=== PATIENT | male | born 1960 | race Caucasian/White ===

== ENCOUNTER → 2019-12-07 | Outpatient (CLI) | payer BC ==
--- NOTE | 2019-12-07 09:36 | Diagnostic Imaging Report ---
PROCEDURE: US Gallbladder. TECHNIQUE: Multiple real-time grayscale images were obtained over the right upper quadrant in various projections. INDICATION: Lower back pain Liver parenchyma is homogeneous with normal echotexture. Portal vein is patent with hepatopedal flow. Gallbladder is clear with no stones or wall thickening. The common duct is not dilated. Pancreas aorta and IVC are obscured by bowel gas. Right kidney measures 10.9 cm in length and appears normal. There is no ascites. IMPRESSION: Negative gallbladder sonogram Dictated by: Dictated on workstation # [id number]
== END ==
LOC: RAD 08:36
PROVIDERS: ATTEND Surgery
DX: M54.5 Low back pain (principal)
CPT/HCPCS: 76705

== ENCOUNTER → 2019-12-18 | Outpatient (CLI) | payer BC ==
[~2019-12-18] MED LIST: CATHETER FLUSH 10 ML SYR IV PRN
--- NOTE | 2019-12-18 14:38 | Diagnostic Imaging Report ---
RADIOPHARMACEUTICAL: 5.41 mCi Tc-99m Choletec IV INDICATION: Lower back pain, abdominal pain. COMPARISON: Ultrasound dated December 07, 2019. TECHNIQUE: Anterior dynamic imaging for 45 minutes. Subsequently, patient drank an 8 ounce can of Ensure and additional imaging was performed for 60 minutes. FINDINGS: There is homogenous uptake throughout the liver. The gallbladder is visualized at 10 minutes and small bowel at 40 minutes. After the patient ingested an 8 ounce can of Ensure, the gallbladder ejection fraction was calculated to be 33%, which is borderline low. IMPRESSION: 1. No evidence of acute cholecystitis or common duct obstruction. 2. The gallbladder ejection fraction is calculated to be 33%. This is borderline low as it is the lower limits of normal. Dictated by: Dictated on workstation # [id number]
== END ==
LOC: EDUNIT# 12-03 15:53 → CARD 11:17
PROVIDERS: ATTEND Surgery
DX: M54.5 Low back pain (principal)
CPT/HCPCS: 78227

== ENCOUNTER 2020-02-24 08:48 | Day surgery (SDC) | payer BC ==
[2020-02-24] VITALS (11 sets, daily range): BP systolic 106–158; BP diastolic 62–85
[~2020-02-24] VITALS: Ht 187.9 cm; Wt 107.0 kg
[2020-02-24] MEDS ORDERED: HEParin (CATH LAB) 2,000 ML IV ONE (08:56)
[2020-02-24] MEDS ORDERED: LIDOCAINE 1% INJ 20 ML 20 ML VIAL ONE (08:56)
[2020-02-24] MEDS ORDERED: NS IV 1000 ML 1,000 ML ONE (08:56)
[2020-02-24] MEDS ORDERED: NS IV 1000 ML 1,000 ML IV SCH ×2 (09:15→13:17)
--- OUTSIDE RECORDS SUMMARY | 2020-02-24 09:16 | XMS REPORT | Clinical Summary ---
Author Author Admin, Shalom You Organization [employer] Address Unknown Phone Unavailable Allergies, Adverse Reactions, Alerts Allergy Name Reaction Description Start Date Severity Status Pr ovider No Known Allergies Brenda Ifgueroa CODEINE Stomach cramp and aches Critical Active Larisa Casiano MD Conditions or Problems Problem Name Problem Code Onset Date Status Entry Date Provider Comment Standard Description Annotate FH Breast Cancer V16.3 Active Larisa Casiano MD Family history of malignant neoplasm of breast B P H 600.00 Active Larisa Casiano MD Hypertrophy (benign) of prostate without urinary obstruction and other lower urinary tract (LUTS) Lower Urinary Tract Symptoms 788.99 Active Larisa Casiano MD Other symptoms involving urinary system Prostatitis-Chronic 601.1 Active Larisa nguyễn MD Chronic prostatitis Medication List Medication Instructions Start Date Stop Date Generic Name NDC Status Provider Patient Instruction FLOMAX 0.4 MG CAPS Take one by mouth daily TAMS ULOSIN HCL 29298108242 Active Larisa Casiano MD Active [facility] FISH OIL 1200 MG CPDR Take one by mouth daily OMEGA-3 FATTY ACIDS 06151854002 Active Larisa Casiano MD Active ZINC 50 MG TABS Take one by mouth daily ZINC 98200 977575 Active Larisa Casiano MD Active EQ COMPLETE MULTIVIT ADULT 50+ TABS Take one by mouth daily MULTIPLE VITAMINS-MINERALS 19899191313 Active Larisa Casiano MD Act javier Advance Directives Directive Description Start Date PERMISSION TO SHARE Vital Signs Date Name Value Unit Range Description blood pressure, diastolic - 8462-4 86 mm[Hg] BP [place]amo blood pressure, systolic - 8480-6 140 mm[Hg] BP sys height E&M - 8302-2 74 [in_us] Bdy h eight pulse rate E&M - 8867-4 75 /min H eart rate temperature E&M 97.5 [degF] Body temp erature weight E&M - 3141-9 225 [lb_av] Weigh t Measured Diagnostic Results Date Name Value Unit Range Description Office Visit: CN Prostate, Dysuria - Ch emistry RBC, urine, dipstick non-hemolyzed trace protein, total urine random negative mg/dL Office Visit: CN Prostate, Dysuria - Ur inalysis urinalysis, routine Clean Catch culture status No ketones, urine, by test strip negative bilirubin, urine negative glucose, urine, semiquantitative negative pH, urine, semiquantitative 6.5 specific gravity, urine 1.025 urine color yellow appearance, urine clear leukocyte esterase, urine, by dipstick negative nitrite, urine, semiquantitative negative urobilinogen, urine, semiquantitative (dipstick) negative protein, urine, semiquantitative (dipstick) negative Encounters Code Encounter Date Provider Facility CPT-58768 Level 3 New Patient 16:52:02 CDT Larisa puri MD [facility] Procedures Code Procedure Name Date Entry Date Standard Desc ription CPT-20690 Bladder Scan 16:52:02 CDT
--- OUTSIDE RECORDS SUMMARY | 2020-02-24 09:16 | XMS REPORT | Clinical Summary ---
Author Author Admin, Shalom You Organization [employer] Address Unknown Phone Unavailable Allergies, Adverse Reactions, Alerts Allergy Name Reaction Description Start Date Severity Status Pr ovider No Known Allergies Brenda Figueroa CODEINE Stomach cramp and aches Critical Active [...] 601.1 Active Larisa nguyễn MD Chronic prostatitis Overactive Bladder Active Larisa martinez MD Hypertonicity of bladder Medication List Medication Instructions Start Date Stop Date Generic Name NDC Status Provider Patient Instruction TYLENOL 325 MG TAB 2 tabs by mouth every 4 to 6 hours prn 0 ACETAMINOPHEN 41834980336 Active Larsia Casiano MD Active ADVIL 200 MG ORAL CAPS 2 caps by mouth every 4 hours prn IBUPROFEN 55185934185 Active Larisa Casiano MD Active EQ COMPLETE MULTIVIT ADULT 50+ TABS Take one by mouth daily MULTIPLE VITAMINS-MINERALS 67991898117 No Longer Active Larisa Casiano MD Active ZINC 50 MG TABS Take one by mouth daily ZINC 93883680773 No Longer Active Larisa Casiano MD Active [facility] FISH OIL 1200 MG CPDR Take one by mouth daily 2015 OMEGA-3 FATTY ACIDS 47793524913 No Longer Active Larisa Casiano MD Acti ve FLOMAX 0.4 MG CAPS Take one by mouth daily TAMS ULOSIN HCL 34626338268 No Longer Active Larisa Casiano MD Active FLOMAX 0.4 MG CAPS Take one by mouth daily FLOMAX 0.4 MG CAPS 803723 TAMSULOSIN HCL Inactive [facility] FISH OIL 1200 MG CPDR Take one by mouth daily 2015 [facility] FISH OIL 1200 MG CPDR OMEGA-3 FATTY ACIDS Inactive ZINC 50 MG TABS Take one by mouth daily ZINC 50 MG TABS 22478351820 ZINC Inactive EQ COMPLETE MULTIVIT ADULT 50+ TABS Take one by mouth daily EQ COMPLETE MULTIVIT ADULT 50+ TABS MULTIPLE VITAMINS-MINERALS Inactive Advance Directives Directive Description Start Date PERMISSION TO SHARE Vital Signs Date Name Value Unit Range Description blood pressure, diastolic - 8462-4 80 mm[Hg] BP [place]amo blood pressure, systolic - 8480-6 120 mm[Hg] BP sys pulse rate E&M - 8867-4 73 /min H eart rate Diagnostic Results Date Name Value Unit Range Description Office Visit: CN Dysuria - Chemistry RBC, urine, dipstick negative protein, total urine random negative mg/dL Office Visit: CN Dysuria - Urinalysis pH, urine, semiquantitative 5 specific gravity, urine 1.010 urinalysis, routine Clean Catch culture status No ketones, urine, by test strip negative bilirubin, urine negative glucose, urine, semiquantitative negative urine color yellow appearance, urine clear leukocyte esterase, urine, by dipstick negative nitrite, urine, semiquantitative negative urobilinogen, urine, semiquantitative (dipstick) 0.2 protein, urine, semiquantitative (dipstick) negative Encounters Code Encounter Date Provider Facility CPT-20324 Level 3 Est. Patient 14:28:52 CDT Larisa costello MD [facility] [place] CPT-17525 Level 3 New Patient 16:52:02 CDT Larisa puri MD [facility] Procedures Code Procedure Name Date Entry Date Standard Desc ription CPT-17299 Bladder Scan 14:28:52 CDT CPT-55368 Bladder Scan 16:52:02 CDT
--- OUTSIDE RECORDS SUMMARY | 2020-02-24 09:16 | XMS REPORT | Continuity of Care Document ---
Demographics Preferred Language Unknown Marital Status Unknown Oriental Orthodox Affiliation Unknown Race Unknown Ethnic Group Unknown Author Organization Unknown Address Unknown Phone Unavailable Allergies Active Description Code Type Severity Reaction Onset Reported/Identified Relationship to Patient Clinical Status Yes codeine [id number] Drug Mild N/A Yes Levaquin [id number] Drug Mild N/A Yes No Allergy Information Available [id number] Drug Allergy Unknown N/A 020 Medications There is no data. Problems Date Dx Coded Attending Type Code Diagnosis Diagnosed By 04/28/2019 Reason For Visit S61.01 1A Laceration without foreign body of right thumb without damage to nail, initial encounter 04/28/2019 Final W26.8XXA Contact with other sharp object(s), not elsewhere classified, initial encounter 04/28/2019 Reason For Visit S61.01 1A Laceration without foreign body of right thumb without damage to nail, initial encounter 04/28/2019 Final W26.8XXA Contact with other sharp object(s), not elsewhere classified, initial encounter 12/10/2019 DELMAN DO, CATRACHITA B Ot M54.5 LOW BACK PAIN 12/11/2019 DELMAN DO, CATRACHITA B Ot M54.5 LOW BACK PAIN 12/23/2019 DELMAN DO, CATRACHITA B Ot M54.5 LOW BACK PAIN 12/23/2019 DELMAN DO, CATRACHITA B Ot M54.5 LOW BACK PAIN 01/04/2020 DELMAN DO, CATRACHITA B Ot M54.5 LOW BACK PAIN 02/19/2020 DELMAN DO, CATRACHITA B Ot M54.5 LOW BACK PAIN 02/19/2020 DELMAN DO, CATRACHITA B Ot M54.5 LOW BACK PAIN Procedures There is no data. Results Test Result Range LIPID PANEL - 11/25/19 09:09 CHOLESTEROL, TOTAL 248 mg/dL <200 HDL CHOLESTEROL 47 mg/dL > OR = 40 TRIGLYCERIDES 229 mg/dL <150 LDL-CHOLESTEROL 162 mg/dL (calc) NRG CHOL/HDLC RATIO 5.3 (calc) <5.0 NON HDL CHOLESTEROL 201 mg/dL (calc) <13 0 CMP - 11/25/19 09:09 GLUCOSE 92 mg/dL 65-99 UREA NITROGEN (BUN) 15 mg/dL 7-25 CREATININE 0.85 mg/dL 0.70-1.33 eGFR NON-AFR. PALESTINIAN 95 mL/min/1.73m2 > OR = 60 eGFR 111 mL/min/1.73m2 > OR = 60 BUN/CREATININE RATIO NOT APPLICABLE (calc) 6-22 SODIUM 137 mmol/L 135-146 POTASSIUM 4.4 mmol/L 3.5-5.3 CHLORIDE 99 mmol/L 98-110 CARBON DIOXIDE 29 mmol/L 20-32 CALCIUM 10.1 mg/dL 8.6-10.3 PROTEIN, TOTAL 7.4 g/dL 6.1-8.1 ALBUMIN 4.7 g/dL 3.6-5.1 GLOBULIN 2.7 g/dL (calc) 1.9-3.7 ALBUMIN/GLOBULIN RATIO 1.7 (calc) 1.0-2. 5 BILIRUBIN, TOTAL 0.6 mg/dL 0.2-1.2 ALKALINE PHOSPHATASE 88 U/L 35-144 AST 15 U/L 10-35 ALT 16 U/L 9-46 CBC - 11/25/19 09:09 WHITE BLOOD CELL COUNT 8.7 Thousand/uL 3 .8-10.8 RED BLOOD CELL COUNT 5.43 Million/uL 4.2 0-5.80 HEMOGLOBIN 16.3 g/dL 13.2-17.1 HEMATOCRIT 48.1 % 38.5-50.0 MCV 88.6 fL 80.0-100.0 MCH 30.0 pg 27.0-33.0 MCHC 33.9 g/dL 32.0-36.0 RDW 13.3 % 11.0-15.0 PLATELET COUNT 326 Thousand/uL 140-400 MPV 11.1 fL 7.5-12.5 ABSOLUTE NEUTROPHILS 5455 cells/uL 1500- 7800 ABSOLUTE LYMPHOCYTES 2279 cells/uL 850-3 900 ABSOLUTE MONOCYTES 696 cells/uL 200-950 ABSOLUTE EOSINOPHILS 209 cells/uL 15-500 ABSOLUTE BASOPHILS 61 cells/uL 0-200 NEUTROPHILS 62.7 % NRG LYMPHOCYTES 26.2 % NRG MONOCYTES 8.0 % NRG EOSINOPHILS 2.4 % NRG BASOPHILS 0.7 % NRG UA W/ MICROSCOPY - 11/25/19 09:09 COLOR YELLOW YELLOW APPEARANCE CLEAR CLEAR SPECIFIC GRAVITY 1.005 1.001-1.035 PH < OR = 5.0 5.0-8.0 GLUCOSE NEGATIVE NEGATIVE BILIRUBIN NEGATIVE NEGATIVE KETONES NEGATIVE NEGATIVE OCCULT BLOOD NEGATIVE NEGATIVE PROTEIN NEGATIVE NEGATIVE NITRITE NEGATIVE NEGATIVE LEUKOCYTE ESTERASE NEGATIVE NEGATIVE WBC NONE SEEN /HPF < OR = 5 RBC NONE SEEN /HPF < OR = 2 SQUAMOUS EPITHELIAL CELLS NONE SEEN /HPF < OR = 5 BACTERIA NONE SEEN /HPF NONE SEEN HYALINE CAST NONE SEEN /LPF NONE SEEN CMP - 02/18/20 13:06 GLUCOSE 99 mg/dL 65-99 UREA NITROGEN (BUN) 12 mg/dL 7-25 CREATININE 0.87 mg/dL 0.70-1.25 eGFR NON-AFR. PALESTINIAN 94 mL/min/1.73m2 > OR = 60 eGFR 109 mL/min/1.73m2 > OR = 60 BUN/CREATININE RATIO NOT APPLICABLE (calc) 6-22 SODIUM 139 mmol/L 135-146 POTASSIUM 4.7 mmol/L 3.5-5.3 CHLORIDE 103 mmol/L 98-110 CARBON DIOXIDE 27 mmol/L 20-32 CALCIUM 9.6 mg/dL 8.6-10.3 PROTEIN, TOTAL 7.2 g/dL 6.1-8.1 ALBUMIN 4.5 g/dL 3.6-5.1 GLOBULIN 2.7 g/dL (calc) 1.9-3.7 ALBUMIN/GLOBULIN RATIO 1.7 (calc) 1.0-2. 5 BILIRUBIN, TOTAL 0.5 mg/dL 0.2-1.2 ALKALINE PHOSPHATASE 103 U/L 35-144 AST 16 U/L 10-35 ALT 16 U/L 9-46 CBC w/MANUAL DIFF - 02/18/20 13:06 WHITE BLOOD CELL COUNT 7.6 Thousand/uL 3 .8-10.8 RED BLOOD CELL COUNT 5.29 Million/uL 4.2 0-5.80 HEMOGLOBIN 15.6 g/dL 13.2-17.1 HEMATOCRIT 48.2 % 38.5-50.0 MCV 91.1 fL 80.0-100.0 MCH 29.5 pg 27.0-33.0 MCHC 32.4 g/dL 32.0-36.0 RDW 12.9 % 11.0-15.0 PLATELET COUNT 226 Thousand/uL 140-400 MPV 11.0 fL 7.5-12.5 ABSOLUTE NEUTROPHILS 4058 cells/uL 1500- 7800 ABSOLUTE MONOCYTES 676 cells/uL 200-950 ABSOLUTE EOSINOPHILS 228 cells/uL 15-500 ABSOLUTE BASOPHILS 76 cells/uL 0-200 NEUTROPHILS 53.4 % NRG LYMPHOCYTES 32.7 % NRG MONOCYTES 8.9 % NRG EOSINOPHILS 3.0 % NRG BASOPHILS 1.0 % NRG ABSOLUTE BAND NEUTROPHILS 76 cells/uL 0- 750 ABSOLUTE LYMPHOCYTES 2485 cells/uL 850-3 900 BAND NEUTROPHILS 1.0 % NRG PLATELET ESTIMATION ADEQUATE ADEQUATE COMMENT(S) NRG BNP - 02/18/20 13:09 B TYPE NATRIURETIC PEPTIDE (BNP) 101 pg/mL <100 Encounters ACCT No. Visit Date/Time Discharge Status Pt. Type Provider Facility Loc./Unit Complaint [id number] 05/13/2019 11:58:00 Document Registration [id number] 04/28/2019 11:59:00 Document Registration [id number] 12/18/2019 11:17:00 23:59:59 CLS Outpatient DARCYCAMBRIDGE CATRACHITA LAUREANO [facility] CARD LOW BACK PAIN [id number] 12/07/2019 08:36:00 23:59:59 CLS Outpatient CATRACHITA CASTELLANO DO [facility] RAD LOW BACK PAIN [id number] 02/24/2020 11:00:00 P EN Marilou CHNE MD, MAEGAN Peres [facility] CATH CP,HTN [id number] 02/17/2016 13:16:01 ACT Unknown [id number] 04/22/2019 15:30:00 04/22/2019 23:59: 59 CLS Outpatient BRENNEN FERNANDEZ [facility] [id number] 02/18/2020 10:00:00 Document Registration [id number] 11/25/2019 09:00:00 Document Registration
--- OUTSIDE RECORDS SUMMARY | 2020-02-24 09:16 | XMS REPORT | Clinical Summary ---
Author Author Admin, Shalom You Organization [employer] Address Unknown Phone Unavailable Allergies, Adverse Reactions, [...] one by mouth daily TAMS ULOSIN HCL 45851421200 Active Larisa Casiano MD Active [facility]S FISH OIL 1200 MG CPDR Take one by mouth daily OMEGA-3 FATTY ACIDS 46456289662 Active Larisa Casiano MD Active ZINC 50 MG TABS Take one by mouth daily ZINC 41705 307293 Active Larisa Casiano MD Active EQ COMPLETE MULTIVIT ADULT 50+ TABS Take one by mouth daily MULTIPLE VITAMINS-MINERALS 48543591114 Active Larisa Casiano MD Act javier Advance [...] negative Encounters Code Encounter Date Provider Facility CPT-88015 Level 3 New Patient 16:52:02 CDT Larisa puri MD [facility] Procedures Code Procedure Name Date Entry Date Standard Desc ription CPT-23947 Bladder Scan 16:52:02 CDT
[2020-02-24 09:35] LABS: HEMOGLOBIN 16.3 G/DL (13.3-17.7); MEAN PLATELET VOLUME 10.1 FL (7.4-10.4); RED CELL DISTRIBUTION WIDTH 13.9 % (10.0-14.5); WHITE BLOOD COUNT 8.3 10^3/uL (4.3-11.0)
--- NOTE | 2020-02-24 09:36 | Diagnostic Imaging Report ---
INDICATION: Pre-heart catheterization. TIME OF EXAM: 9:19 AM No prior studies are available for comparison. FINDINGS: The heart size is normal. The pulmonary vascularity is unremarkable. The lungs are clear. No infiltrate, effusion or pneumothorax is detected. IMPRESSION: No acute cardiopulmonary process is detected. Dictated by: Dictated on workstation # [id number]
[2020-02-24 09:37] LABS: BILIRUBIN,URINE NEGATIVE (NEGATIVE); CLARITY,URINE CLEAR; COLOR,URINE YELLOW; GLUCOSE, URINE (UA) NEGATIVE (NEGATIVE); KETONES,URINE NEGATIVE (NEGATIVE); LEUKOCYTE ESTERASE ,URINE NEGATIVE (NEGATIVE); NITRITE,URINE NEGATIVE (NEGATIVE); PH,URINE 5.5 (5-9); PROTEIN,URINE NEGATIVE (NEGATIVE)
[2020-02-24 09:44] LABS: PROTHROMBIN TIME PATIENT 13.2 SEC (12.2-14.7)
[2020-02-24 09:45] LABS: BACTERIA,URINE NEGATIVE /HPF; SQUAMOUS EPITHELIAL CELL,UR 0-2 /HPF
[2020-02-24 09:51] LABS: ALANINE AMINOTRANSFERASE 18 U/L (0-55); ALBUMIN 4.5 GM/DL (3.2-4.5); ALKALINE PHOSPHATASE 93 U/L (40-136); BILIRUBIN,TOTAL 0.7 MG/DL (0.1-1.0); BUN/CREATININE RATIO 16; CALCIUM 9.7 MG/DL (8.5-10.1); CARBON DIOXIDE 27 MMOL/L (21-32); CHLORIDE 102 MMOL/L (98-107); CHOLESTEROL 256 MG/DL (< 200); CREATININE SERUM 0.96 MG/DL (0.60-1.30); GFR ESTIMATED > 60; GLUCOSE 103 MG/DL (70-105); HDL CHOLESTEROL 53 MG/DL (40-60); POTASSIUM 4.3 MMOL/L (3.6-5.0); SODIUM 140 MMOL/L (135-145); TOTAL PROTEIN 8.2 GM/DL (6.4-8.2); TRIGLYCERIDES 205 MG/DL (<150); VLDL CHOLESTEROL 41 MG/DL (5-40)
[2020-02-24] MEDS ORDERED: OMEG10005 PO (10:00)
[2020-02-24] MEDS ORDERED: [UNRECOGNIZED DRUG - OTHER] PO (10:00)
[2020-02-24] MEDS ORDERED: BETA SITOSTEROL PO (10:00)
[2020-02-24] MEDS ORDERED: [UNRECOGNIZED DRUG - OTHER] PO (10:00)
[2020-02-24] MEDS ORDERED: [UNRECOGNIZED DRUG - OTHER] PO (10:00)
[2020-02-24] MEDS ORDERED: [UNRECOGNIZED DRUG - OTHER] PO (10:00)
[2020-02-24] MEDS ORDERED: [UNRECOGNIZED DRUG - OTHER] PO (10:00)
[2020-02-24] MEDS ORDERED: LISI10TA2 PO (10:00)
[2020-02-24] MEDS ORDERED: MULT-974 PO (10:00)
[2020-02-24] MEDS ORDERED: FEXO1TAB43 PO (10:00)
[2020-02-24] MEDS ORDERED: FLUT9.9S NS (10:00)
[2020-02-24] MEDS ORDERED: NAPH15DR62 OP (10:00)
[2020-02-24] MEDS ORDERED: CALM FORTE PO (10:00)
[2020-02-24] MEDS ORDERED: [UNRECOGNIZED DRUG - OTHER] PO (10:00)
[2020-02-24] MEDS ORDERED: [UNRECOGNIZED DRUG - OTHER] PO (10:00)
[2020-02-24] MEDS ORDERED: LACT1TAB25 PO (10:00)
--- NOTE | 2020-02-24 12:20 | Cardiac Procedure Note-CS/ASA ---
Pre-Procedure Note Pre-Op Procedure Note H&P Reviewed The H&P was reviewed, patient examined and no changes noted. Date H&P Reviewed: February 24, 2020 Time H&P Reviewed: 12:19 Conscious Sedation Pre-Proced Time 12:20 ASA Score 3 For ASA 3 and 4: Consider anesthesia and medical clearance. Also, for patients with a history of failed moderate sedation consider anesthesia. Airway Lungs Heart ASA score ASA 1: a normal healthy patient ASA 2: a patient with a mild systemic disease (mid diabetes, controlled hypertension, obesity x ASA 3: a patient with a severe systemic disease that limits activity (angina, COPD, prior Myocardial infarction) ASA 4: a patient with an incapacitating disease that is a constant threat to life (CHF, renal failure) ASA 5: a moribund patient not expected to survive 24 hrs. (ruptured aneurysm) ASA 6: a declared brain- patient whose organs are being harvested. For emergent operations, add the letter E after the classification Mallampati Classification Grade 3 Sedation Plan Analgesia, Amnesia, Plan communicated to team members, Discussed options with patient/fam, Discussed risks with patient/fam The patient is an appropriate candidate to undergo the planned procedure, sedation, and anesthesia. The patient immediately re-assessed prior to indication. MAEGAN CHEN MD February 24, 2020 12:20
[2020-02-24] MEDS ORDERED: fentaNYL INJECTION 100 MCG/2 ML AMP ONE (12:23)
[2020-02-24] MEDS ORDERED: MIDAZOLAM 5 MG/5 ML (VERSED) VIAL ONE (12:23)
--- NOTE | 2020-02-24 13:25 | Cardiac Cath Report ---
Cardiac Cath Report Physician (s)/Machine Repairer Maintenance (s) Physician MAEGAN CHEN MD Pre-Procedure Diagnosis Pre-Procedure Diagnosis: Coronary artery disease Post-Procedure Note Procedure Start Date: February 24, 2020 Name of Procedure: Coronary artery disease Findings/Procedure Note PROCEDURE NOTE: 59 years old gentleman with history of hypertension, strong family history of heart disease, has been having accelerating angina, scheduled for cardiac catheterization possible After explaining the procedure to the patient, all pros and cons were explained, all questions were answered. The patient signed the consent and then he was placed on the cardiac catheterization laboratory. Groin was prepped SL fashion local anesthesia was used. Sheath placed in the artery. Haroon right and left catheter were used to access the coronary system. Pigtail was used to access the left ventricular cavity. Left ventriculogram was done Patient was noted to have severe aortic valve stenosis, I decided to evaluate the aortic arch as a source for his chest pain and in preparation for possible planned aortic valve replacement. Aortic arch angiogram was done At the end of the procedure the sheath was removed. Closure device was used FINDINGS: Hemodynamics LV 162/17, end-diastolic pressure 17 Aorta 105/55 mean of 76 ANATOMY: Left Main is free of obstructive disease Left Anterior Descending has mild disease nonobstructive disease Left Circumflex has 40 percent stenosis distally nonobstructive disease Right Coronory Artery has mild disease nonobstructive disease LV Gram is normal in size and contractile TSH ejection fraction 60 percent Aorta evaluation done with aortic arch angiogram showed normal aortic arch, no dissection or aneurysm, normal origin of the brachiocephalic artery, carotid and subclavian artery CONCLUSION: 1. Severe aortic valve stenosis with peak to peak gradient of 60 mmHg 2. Normal left ventricular size and systolic function estimated ejection fraction 60 percent 3. Normal aortic arch and great vessels of the neck DISCUSSION AND RECOMMENDATION: medical therapy is recommended, started on statin, I will evaluate 2-D echo in preparation for possible valve replacement Anesthesia Type: Conscious Sedation Estimated blood loss (mL): 20 ml Contrast Amount: 70 ml Total Radiation Dose: 617 mGy Post-Procedure Diagnosis Post-operative diagnosis: Unstable angina Coronary artery disease Hypertension Hyperlipidemia MAEGAN CHEN MD February 24, 2020 13:25
[2020-02-24] MEDS ORDERED: ATOR10TA PO (13:27)
--- NOTE | 2020-02-24 13:28 | Discharge Inst-Post CATH ---
Discharge Inst-CATH/EP Problems Reviewed?: Yes Post Cardiac Cath/EP D/C Inst Follow Up/Plan Appointment with Dr. Bernard's office in 2-4 weeks <b>CARDIAC CATH/EP PROCEDURE DISCHARGE INSTRUCTIONS</b> ACTIVITY * Go Home directly and rest. * Limit activity of the leg (or wrist if it was used) for 7 days including aerobics, swimming, jogging, bicycling, etc. * Restrict stair-climbing for 7 days if possible, if not, climb up with your non-cath leg, then bring together on the same step. * Avoid lifting, pushing, pulling or excessive movement of the affected extremity for 7 days. * Customary sexual activity may be resumed after 2 days-use caution not to use a position that strains or causes pain to the affected extremity. * No driving for 24 hours. * NO SMOKING. * Avoid straining for bowel movements for 7 days. * Gentle walking on level ground is allowed. * Returning to work will depend on the type of procedure and the results. Your doctor will discuss this with you. CALL YOUR DOCTOR FOR ANY OF THE FOLLOWING: *If bleeding from the puncture site occurs- Apply gentle pressure to site with clean cloth and call your doctor or EMS. * If a knot or lump forms under the skin, increases in size, or causes pain. * If bruising appears to be worsening or moving further down your leg instead of disappearing. * Temperature above 101 F. CARE OF YOUR GROIN INCISION; * Bruising or purple discoloration of the skin near the puncture site is common. * You may shower only, no bathtub bathing for 5 days. Be careful to avoid slipping as your leg may feel stiff. * If a closure device was used on your femoral artery, please see the attached guide regarding care of the device and your leg. * Leave dressing on FOR 24 hours. CARE OF YOUR WRIST INCISION; * Bruising or purple discoloration of the skin near the puncture site is common. * You may shower. * DO NOT submerge wrist. * Leave dressing on FOR 24 hours. MAEGAN BERNARD MD February 24, 2020 13:27
[2020-02-24] MEDS ORDERED: PATIENT MAY USE OWN MEDS, ALL PO SCH (13:30)
== END 2020-02-24 17:30 | disposition home or self-care (01) ==
LOC: CATH 08:48 → SDC 13:55 → CATH 17:30
PROVIDERS: ATTEND Internal Medicine Cardiovascular Disease
DX: I25.110 Atherosclerotic heart disease of native coronary artery with unstable angina pectoris (principal); I35.0 Nonrheumatic aortic (valve) stenosis; I10 Essential (primary) hypertension; E78.5 Hyperlipidemia, unspecified; K29.50 Unspecified chronic gastritis without bleeding; Z88.5 Allergy status to narcotic agent; Z79.1 Long term (current) use of non-steroidal anti-inflammatories (NSAID); Z79.899 Other long term (current) drug therapy; Z80.3 Family history of malignant neoplasm of breast; Z83.3 Family history of diabetes mellitus
CPT/HCPCS: 36221; 36415; 71045; 80053; 80061; 81000; 85027; 85610; 85730; 87081; 93306; 93458

== ENCOUNTER → 2020-08-30 | Outpatient (CLI) | payer BC ==
[~2020-08-30] MED LIST changes: +ATOR10TA PO; +BETA SITOSTEROL PO; +CALM FORTE PO; -CATHETER FLUSH 10 ML SYR IV PRN; +FEXO1TAB43 PO; +FLUT9.9S NS; +LACT1TAB25 PO; +LISI10TA2 PO; +MULT-974 PO; +NAPH15DR62 OP; +OMEG10005 PO; +[UNRECOGNIZED DRUG - OTHER] PO; +[UNRECOGNIZED DRUG - OTHER] PO; +[UNRECOGNIZED DRUG - OTHER] PO; +[UNRECOGNIZED DRUG - OTHER] PO; +[UNRECOGNIZED DRUG - OTHER] PO; +[UNRECOGNIZED DRUG - OTHER] PO; +[UNRECOGNIZED DRUG - OTHER] PO
== END ==
LOC: CARD 12:04
PROVIDERS: ATTEND Physician Assistant
DX: I35.2 Nonrheumatic aortic (valve) stenosis with insufficiency (principal); I35.8 Other nonrheumatic aortic valve disorders; I25.10 Atherosclerotic heart disease of native coronary artery without angina pectoris; E66.9 Obesity, unspecified; Z82.49 Family history of ischemic heart disease and other diseases of the circulatory system
CPT/HCPCS: 93306

== ENCOUNTER → 2021-10-27 | Outpatient (CLI) | payer BC ==
[~2021-10-27] MED LIST changes: -LISI10TA2 PO; +LISI10TA25 PO
== END ==
LOC: CARD 09:00
PROVIDERS: ATTEND Internal Medicine Cardiovascular Disease
DX: I11.9 Hypertensive heart disease without heart failure (principal); I49.9 Cardiac arrhythmia, unspecified; Z95.2 Presence of prosthetic heart valve
CPT/HCPCS: 93225; 93226; 93306

== ENCOUNTER → 2022-10-18 | Outpatient (CLI) | payer BC | LOC: CARDFS 09:40 | PROVIDERS: ATTEND Physician Assistant | DX: I11.9 Hypertensive heart disease without heart failure (principal) | CPT/HCPCS: 93306 ==